=== PATIENT | female | born 1990 | race American Indian/Alaskan Native ===

== ENCOUNTER 2016-12-17 19:31 | Emergency (ER) | payer OTHER ==
[2016-12-17 21:36] LABS: Basophils % (Auto) 0.4 % (0.0-1.8); Eosinophils % (Auto) 1.2 % (0.0-4.3); Hematocrit 39.3 % (30.3-42.9); Hemoglobin 12.8 gm/dl (10.1-14.3); Mean Corpuscular HGB Conc 33 % (30-34); Mean Corpuscular Hemoglobin 28 pg (28-32); Mean Corpuscular Volume 86 fl (79-97); Platelet Count 223 K/mm3 (140-440); Red Blood Count 4.55 M/mm3 (3.65-5.03); Red Cell Distribution Width 13.3 % (13.2-15.2); White Blood Count 8.2 K/mm3 (4.5-11.0)
[2016-12-17 21:54] LABS: Bilirubin,Urine NEG (Negative); Blood,Urine LG (Negative); Ketones,Urine NEG (Negative); Leukocyte Esterase,Urine NEG (Negative); Mucus,Urine 1+ /HPF; Nitrite,Urine NEG (Negative); Urobilinogen,Urine < 2.0 mg/dL (<2.0)
--- NOTE | 2016-12-18 00:19 | Ultrasound Report ---
FINAL REPORT PROCEDURE: US OB TRANSVAGINAL TECHNIQUE: Real-time transabdominal and transvaginal sonography of the uterus, placenta, amniotic fluid, adnexa, and fetus was performed with image documentation. Measurements were obtained to determine age/size. M-mode Doppler was used to document heartbeat. CPT 20056 and 64769 HISTORY: vaginal bleeding COMPARISON: No prior studies are available for comparison. FINDINGS: The uterus size is 8.8 x 4.4 x 6 centimeters. There is a small area of hypoattenuation measuring approximately 6 millimeters. This could represent an early gestational sac. This would correspond to gestational age of around 5 weeks. There is a small cyst on the right ovary. This measures 6 millimeters. A complex cystic structure on the left ovary measures 2 centimeters. No fluid in the lower pelvis. The findings may indicate multiple etiologies including early or failure. Ectopic is not entirely excluded on the basis of this single study. This patient will need followup exams including serial beta HCG levels and perhaps repeat ultrasound in approximately 14 days. IMPRESSION: Small area of hypoattenuation within the uterus may represent an early gestational sac. This would be a of less than 5 weeks. There is a complex cystic structure on the left ovary measuring 2 centimeters. A smaller cyst on the right ovary measures 6 millimeters. The findings may indicate early or failure. Ectopic is not entirely excluded on the basis of this study. Followup studies would be appropriate as discussed above in detail.
--- NOTE | 2016-12-18 00:20 | Ultrasound Report ---
FINAL REPORT PROCEDURE: US OB early , transabdominal and transvaginal TECHNIQUE: Real-time transabdominal and transvaginal sonography of the uterus, placenta, amniotic fluid, adnexa, and fetus was performed with image documentation. Measurements were obtained to determine age/size. M-mode Doppler was used to document heartbeat. CPT 28854 and 82985 HISTORY: vaginal bleeding COMPARISON: No prior studies are available for comparison. FINDINGS: The uterus size is 8.8 x 4.4 x 6 centimeters. There is a small area of hypoattenuation measuring approximately 6 millimeters. This could represent an early gestational sac. This would correspond to gestational age of around 5 weeks. There is a small cyst on the right ovary. This measures 6 millimeters. A complex cystic structure on the left ovary measures 2 centimeters. No fluid in the lower pelvis. The findings may indicate multiple etiologies including early or failure. Ectopic is not entirely excluded on the basis of this single study. This patient will need followup exams including serial beta HCG levels and perhaps repeat ultrasound in approximately 14 days. IMPRESSION: Small area of hypoattenuation within the uterus may represent an early gestational sac. This would be a of less than 5 weeks. There is a complex cystic structure on the left ovary measuring 2 centimeters. A smaller cyst on the right ovary measures 6 millimeters. The findings may indicate early or failure. Ectopic is not entirely excluded on the basis of this study. Followup studies would be appropriate as discussed above in detail. PROCEDURE: TECHNIQUE: HISTORY: COMPARISON: FINDINGS: IMPRESSION:
[2016-12-18 02:41] VITALS: BP 154/105
--- NOTE | 2016-12-18 23:46 | ED Elopement Review ---
ED Pt Elopement review - Results review Lab results: Laboratory Tests 12/17/16 12/17/16 12/17/16 21:14 21:14 21:17 WBC 8.2 RBC 4.55 Hgb 12.8 Hct 39.3 MCV 86 MCH 28 MCHC 33 RDW 13.3 Plt Count 223 Lymph % (Auto) 38.9 H Real % (Auto) 8.9 H Eos % (Auto) 1.2 Baso % (Auto) 0.4 Lymph # 3.2 Real # 0.7 Eos # 0.1 Baso # 0.0 Seg Neutrophils % 50.6 Seg Neutrophils # 4.1 HCG, Quant 2334 H Urine Color Urine Turbidity Urine pH Ur Specific Dix[place] Urine Protein Urine Glucose (UA) Urine Ketones Urine Blood Urine Nitrite Urine Bilirubin Urine Urobilinogen Ur Leukocyte Esterase Urine WBC (Auto) Urine RBC (Auto) U Epithel Cells (Auto) Urine Mucus Blood Type O POSITIVE Antibody Screen Negative 12/17/16 21:29 WBC RBC Hgb Hct MCV MCH MCHC RDW Plt Count Lymph % (Auto) Real % (Auto) Eos % (Auto) Baso % (Auto) Lymph # Real # Eos # Baso # Seg Neutrophils % Seg Neutrophils # HCG, Quant Urine Color Irina Urine Turbidity Clear Urine pH 6.0 Ur Specific Dixie 1.023 Urine Protein 30 mg/dl Urine Glucose (UA) Neg Urine Ketones Neg Urine Blood Lg Urine Nitrite Neg Urine Bilirubin Neg Urine Urobilinogen < 2.0 Ur Leukocyte Esterase Neg Urine WBC (Auto) 4.0 Urine RBC (Auto) 3.0 U Epithel Cells (Auto) 5.0 Urine Mucus 1+ Blood Type Antibody Screen - Call Back decision Pt Call Back Decision: No action required
== END 2016-12-18 09:20 | disposition left against medical advice (07) ==
LOC: ED 19:31
DX: N93.9 Abnormal uterine and vaginal bleeding, unspecified (principal); Z53.21 Procedure and treatment not carried out due to patient leaving prior to being seen by health care provider
CPT/HCPCS: 36415; 76801; 76817; 81001; 84702; 85025; 86850; 86900; 86901

== ENCOUNTER 2021-03-28 14:37 | Observation (INO) | payer MEDICAID ==
[2021-03-28 16:23] LABS: Bilirubin,Urine NEG (Negative); Blood,Urine NEG (Negative); Calcium Oxalate Crystals,Urine 3+; Color,Urine Yellow (Yellow); Mucus,Urine 1+ /HPF
[2021-03-28] MEDS ORDERED: LACTATED RINGERS 1,000 ML IV SCH ×2 (18:45→19:00)
[2021-03-28] MEDS ORDERED: DOCUSATE SODIUM 100 MG CAP PO PRN (18:46)
[2021-03-28] MEDS ORDERED: ACETAMINOPHEN 325 MG TAB PO PRN (18:46)
[2021-03-28] MEDS: LACTATED RINGERS 1,000 ML IV SCH ×2 (19:36→22:17)
[2021-03-28] MEDS: BETAMET ACET/BETAMET NA PH 6 MG/ML INJ 5 ML MDV IM SCH (19:41)
[2021-03-29] MEDS: LACTATED RINGERS 1,000 ML IV SCH (05:54)
--- NOTE | 2021-03-29 08:15 | Short Stay Summary ---
Short Stay Documentation Date of service: 03/29/21 Narrative H&P: 31-year-old at 33+4 weeks presented to labor and delivery triage with a complaint of uterine contractions. The patient has a history of 5 prior deliveries. She is currently receiving 17 P during this . Cervical exam on admission was approximately 2 cm dilatation. The patient was experiencing irregular mild contractions. She was admitted for observation and steroid therapy. - History Principal diagnosis: labor Past Medical History: other (Asthma) Social history: - Allergies and Medications Current Medications: Allergies No Known Allergies Allergy (Verified 03/28/21 15:11) Home Medications Medication Instructions Recorded Confirmed Last Taken Type No Known Home Medications [No 03/29/21 03/29/21 Unknown History Reported Home Medications] Active Medications Acetaminophen (Acetaminophen 325 Mg Tab) 650 mg PO Q4H PRN PRN Reason: Pain MILD(1-3)/Fever >100.5/FERNANDEZ Betamethasone Acet/Betameth SodPhos (Betamet Acet/Betamet Na Ph 6 Mg/Ml Inj 5 Ml Mdv) 12 mg IM Q24H RABIA Stop: 03/29/21 19:01 Last Admin: 03/28/21 19:41 Dose: 12 mg Documented by: Docusate Sodium (Docusate Sodium 100 Mg Cap) 100 mg PO Q12H PRN PRN Reason: Constipation Lactated Ringer's (Lactated Ringers) 1,000 mls @ 125 mls/hr IV DIRECT RABIA Last Admin: 03/29/21 05:54 Dose: 125 mls/hr Documented by: Lactated Ringer's (Lactated Ringers) 1,000 mls @ 125 mls/hr IV DIRECT RABIA Multivitamins/Iron/Calcium ( [id number] Fumarate-Folic Acid Vit Tab) 1 each PO QDAY RABIA - Physical exam General appearance: no acute distress Integumentary: no rash HEENT: Atraumatic Lungs: Clear to auscultation Heart: Regular rate Gastrointestinal: normal - Hospital course Hospital course: The patient was admitted for contractions and cervical dilatation of 2 cm. She received steroid therapy. She had no further cervical change during her observation. The patient was discharged home on bedrest. - Disposition Condition at discharge: Good Disposition: [id number] TO HOME OR SELFCARE - Discharge Diagnoses (1) labor Status: Acute Short Stay Discharge Plan Activity: other (Modified bedrest for duration of ) Diet: regular Additional Instructions: Schedule follow-up in 1 week
[2021-03-29] MEDS ORDERED: PRENATAL VIT27-FE FUMARATE-FOLIC ACID VIT TAB PO SCH (10:00)
[2021-03-29] MEDS: BETAMET ACET/BETAMET NA PH 6 MG/ML INJ 5 ML MDV IM SCH (18:48)
[2021-03-29 18:50] VITALS: BP 115/70
== END 2021-03-29 19:02 | disposition home or self-care (01) ==
LOC: TRG 14:37 → APU 14:39 → LD 15:11 → TRG 15:11
PROVIDERS: ADMIT Obstetrics & Gynecology; ATTEND Obstetrics & Gynecology
DX: O42.92 Full-term premature rupture of membranes, unspecified as to length of time between rupture and onset of labor (principal); Z20.822 Contact with and (suspected) exposure to COVID-19; O99.513 Diseases of the respiratory system complicating pregnancy, third trimester; J45.909 Unspecified asthma, uncomplicated; Z3A.33 33 weeks gestation of pregnancy
CPT/HCPCS: 59025; 81001; 96372; 96376; G0378; J0702; J7120; U0003

== ENCOUNTER 2021-09-10 11:47 | Emergency (ER) | payer MEDICAID ==
[2021-09-10 11:59] VITALS: BP 140/82
[2021-09-10] MEDS ORDERED: IBUPROFEN 800 MG TAB PO ONE (12:16)
--- NOTE | 2021-09-10 12:16 | Emergency Department Report ---
ED ENT HPI - General Chief complaint: Dental/Oral Stated complaint: TOOTH ACHE Time Seen by Provider: 09/10/21 12:13 Source: patient Mode of arrival: Ambulatory Limitations: No Limitations - History of Present Illness Initial comments: Patient presents with a toothache. She has had problems with her teeth for a long time. She is here today because of pain in the lower mandible area. She states that she had a tooth that broke off. The filling in the adjacent tooth also came out. She came here for evaluation. She has not gone to see a dentist. She believes that she needs some antibiotics and a referral to a dental clinic. Patient has no fevers or chills per there is no cough congestion. She is taken [id number] medication. She has not been on antibiotics lately. The pain is a constant ache. Is in the right mandibular area. There is no facial swelling. - Related Data Previous Rx's Medication Instructions Recorded Last Taken Type Ibuprofen [Motrin] 800 mg PO Q8HR PRN #30 tablet 09/10/21 Unknown Rx Penicillin V Potassium 500 mg PO TID #30 tablet 09/10/21 Unknown Rx Allergies Allergy/AdvReac Type Severity Reaction Status Date / Time No Known Allergies Allergy Verified 03/28/21 15:11 ED Dental HPI - General Chief complaint: Dental/Oral Stated complaint: TOOTH ACHE Time Seen by Provider: 09/10/21 12:13 Source: patient Mode of arrival: Ambulatory Limitations: No Limitations - Related Data Previous Rx's Medication Instructions Recorded Last Taken Type Ibuprofen [Motrin] 800 mg PO Q8HR PRN #30 tablet 09/10/21 Unknown Rx Penicillin V Potassium 500 mg PO TID #30 tablet 09/10/21 Unknown Rx Allergies Allergy/AdvReac Type Severity Reaction Status Date / Time No Known Allergies Allergy Verified 03/28/21 15:11 ED Review of Systems ROS: Stated complaint: TOOTH ACHE Other details as noted in HPI Comment: All other systems reviewed and negative Constitutional: denies: fever Eyes: denies: vision change ENT: as per HPI Respiratory: denies: cough Cardiovascular: denies: chest pain Endocrine: denies: unexplained weight loss Gastrointestinal: denies: abdominal pain Genitourinary: denies: dysuria Musculoskeletal: denies: back pain Neurological: denies: headache Hematological/Lymphatic: denies: easy bruising ED Past Medical Hx - Past Medical History Previous Medical History?: Yes Hx Hypertension: No Hx Diabetes: Yes (gestational) Hx Deep Vein Thrombosis: No Hx Renal Disease: No Hx Sickle Cell Disease: No Hx Seizures: No Hx Asthma: Yes (last attacl as a teen) Hx HIV: No - Surgical History Past Surgical History?: No - Family History Family history: no significant - Social History Smoking Status: Never Smoker - Medications Home Medications: Home Medications Medication Instructions Recorded Confirmed Last Taken Type Ibuprofen [Motrin] 800 mg PO Q8HR PRN #30 tablet 09/10/21 Unknown Rx Penicillin V Potassium 500 mg PO TID #30 tablet 09/10/21 Unknown Rx ED Physical Exam - General Limitations: No Limitations, Other (Pulse ox noted and normal) General appearance: alert, in no apparent distress - Head Head exam: Present: atraumatic, normocephalic, normal inspection - Eye Eye exam: Present: normal appearance, EOMI. Absent: scleral icterus - ENT ENT exam: Present: normal external ear exam, other (Patient has diffuse dental caries. There is tenderness with palpation over the right lower mandible area. There is no gingival erythema or warmth. There is a fracture of the first molar.) - Neck Neck exam: Present: normal inspection. Absent: meningismus - Respiratory Respiratory exam: Absent: respiratory distress - Cardiovascular Cardiovascular Exam: Absent: JVD - Back Exam Back exam: Present: full ROM - Neurological Exam Neurological exam: Present: alert, oriented X3, normal gait. Absent: motor sensory deficit - Psychiatric Psychiatric exam: Present: normal affect, normal mood - Skin Skin exam: Present: warm, dry ED Course Vital Signs 09/10/21 11:57 Temperature 98.1 F Pulse Rate 68 Respiratory 16 Rate Blood Pressure 140/82 O2 Sat by Pulse 100 Oximetry - Reevaluation(s) Reevaluation #1: 09/10/21 12:21 Patient was discharged. Old records noted. ED Medical Decision Making - Medical Decision Making Patient presents with dentalgia. She has evidence of dental caries as well as a possible apical alveolar abscess. There is no buccal cellulitis. There is no gingivitis. She does not have any recent history of trauma. She does not appear to be septic or toxic. There is no airway compromise. Critical Care Time: No Critical care attestation.: If time is entered above; I have spent that time in minutes in the direct care of this critically ill patient, excluding procedure time. ED Disposition Clinical Impression: Apical alveolar abscess, Dental caries Disposition: HOME / SELF CARE / HOMELESS Is pt being admited?: No Condition: Stable Instructions: Dental Abscess Additional Instructions: Have a soft diet. See dentist. Drink any water. Return for problems. Follow- up with your regular physician for recheck and further management. Prescriptions: Ibuprofen [Motrin] 800 mg PO Q8HR PRN #30 tablet PRN Reason: Pain, Moderate (4-6) Penicillin V Potassium 500 mg PO TID #30 tablet Referrals: PRIMARY CAREMD [Referring] - 3-5 Days BAKARI COELLO MD [Staff Physician] - 3-5 Days
[2021-09-10] MEDS ORDERED: PENICILLIN V POTASSIUM 250 MG TAB PO ONE (13:00)
== END 2021-09-10 13:00 | disposition home or self-care (01) ==
LOC: ED 11:47
DX: K04.7 Periapical abscess without sinus (principal); K02.9 Dental caries, unspecified; J45.909 Unspecified asthma, uncomplicated
CPT/HCPCS: 99282